=== PATIENT | female | born 1995 | race Caucasian/White ===

== ENCOUNTER → 2016-08-20 | Outpatient (CLI) | payer OTHER ==
[2016-08-20 11:03] LABS: LYMPH % 16.1 % (10-50.0)
[2016-08-20 13:51] LABS: BUN 10 mg/dL (7-18)
[2016-08-20 14:48] LABS: GFR (ESTIMATED) 106 ML/MIN (59-)
== END ==
LOC: LAB 10:53
PROVIDERS: Internal Medicine
DX: R60.0 Localized edema (principal); M79.1 Myalgia

== ENCOUNTER 2016-10-04 17:10 | Emergency (ER) | payer OTHER ==
[~2016-10-04] VITALS: Ht 162.6 cm; Wt 59.0 kg
--- NOTE | 2016-10-04 18:10 | Urgent Treatment Center Report ---
History of Present Issue Date/Time Seen by Provider 10/04/16 1800 Visit Reason Pt arrived:Walked Presenting Problem:PT C/O FLU LIKE SYMPTOMS AND SORE THROAT Location if Accident: Onset of symptoms date/time:/ or onset unknown for:MEDICAL HX UNKNOWN Have you (or family members/close friends) recently traveled outside the [place]? N If Yes, where/when: Have you had exposure to infectious disease within the past month? TB? Other? Specify: Patient states that she is having flu like symptoms. 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 State that she awoke this morning with sorethroat, and body aches Source patient ALLERGIES Coded Allergies: Sulfa (Sulfonamide Antibiotics) (11/21/15) History Medical History General CAD? No Angina: No [place]: No Hypertension? No Hyperlipidemia? No CHF? No DVT? No PE? No COPD? No Asthma? No Anemia? No GERD? No Gastric ulcers? No GI Bleed? No Hernia? No Thyroid Problems? No Hypothyroidism? No CVA? No Seizures? No Diabetes? No Renal Insuffiency? No UTI? No Stones? No BPH? No GB Disease: No Nephritic Syndrome? No Asplenia? No Hepatitis? No Sickle Cell Disease? No Arthritis? No Migraines? No Cataracts? No Glaucoma? No MRSA? No HIV? No TB? No Anxiety? No Depression? No Cancer? No More? No Immunization HX DT/Tetanus Has Never Had Surgical Hx Previous Surgery?Y T AND A Social History Smoking Hx Smoker: Never Smoker Tobacco: No Alcohol Alcohol: No Review of Systems All Other Systems Reviewed and Negative ENT throat pain. Comment Body aches, over all just feels weak and tired Physical Exam Vital Signs Vital Signs Date Time Temp Pulse Resp B/P Pulse O2 O2 Flow FiO2 Ox Delivery Rate 10/04 1749 98.2 84 16 122/64 98 General Appearance normal appearance, WD/WN, no apparent distress, mild distress Ear, Nose, Throat throat red, irritated Respiratory Status Yes: trachea midline, chest symmetrical, non tender chest. No: respiratory distress. 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 No Results/Orders Orders Procedure Date/time Status [facility] STREP SCREEN 10/05 1751 Active [facility] FLU A,B 10/05 1751 Active Departure Departure Time of Disposition 180 Disposition DC Home or Self Care(routine) Clinical Impression Primary Impression: Viral upper respiratory illness Condition STABLE Referrals Emory WICK,Abdon Paris (Family) Patient Instructions DI for Viral Upper Respiratory Infection -- Adult Additional Instructions Drink plenty of fluids Follow up with family doctor Return if needed Discharge Counseling Counseled pt/family regarding diagnosis, test results, medications/RX, home care, follow up needs at 1808
--- NOTE | 2016-10-04 18:10 | Urgent Treatment Center Report ---
History of Present Issue Date/Time Seen by Provider 10/04/16 1800 Visit Reason Pt arrived:Walked Presenting Problem:PT C/O FLU LIKE SYMPTOMS AND SORE THROAT Location if Accident: Onset of symptoms date/time:/ or onset unknown for:MEDICAL HX UNKNOWN Have you (or family members/close friends) recently traveled outside the [place]? N If Yes, where/when: Have you had exposure to infectious disease within the past month? TB? Other? Specify: Patient states that she is having flu like symptoms. 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 State that she awoke this morning with sorethroat, and body aches Source patient ALLERGIES Coded Allergies: Sulfa (Sulfonamide Antibiotics) (11/21/15) History Medical History General CAD? No Angina: No [place]: No Hypertension? No Hyperlipidemia? No CHF? No DVT? No PE? No COPD? No Asthma? No Anemia? No GERD? No Gastric ulcers? No GI Bleed? No Hernia? No Thyroid Problems? No Hypothyroidism? No CVA? No Seizures? No Diabetes? No Renal Insuffiency? No UTI? No Stones? No BPH? No GB Disease: No Nephritic Syndrome? No Asplenia? No Hepatitis? No Sickle Cell Disease? No Arthritis? No Migraines? No Cataracts? No Glaucoma? No MRSA? No HIV? No TB? No Anxiety? No Depression? No Cancer? No More? No Immunization HX DT/Tetanus Has Never Had Surgical Hx Previous Surgery?Y T AND A Social History Smoking Hx Smoker: Never Smoker Tobacco: No Alcohol Alcohol: No Review of Systems All Other Systems Reviewed and Negative ENT throat pain. Comment Body aches, over all just feels weak and tired Physical Exam Vital Signs Vital Signs Date Time Temp Pulse Resp B/P Pulse O2 O2 Flow FiO2 Ox Delivery Rate 10/04 1749 98.2 84 16 122/64 98 General Appearance normal appearance, WD/WN, no apparent distress, mild distress Ear, Nose, Throat throat red, irritated Respiratory Status Yes: trachea midline, chest symmetrical, non tender chest. No: respiratory distress. 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 No Results/Orders Orders Procedure Date/time Status [facility] STREP SCREEN 10/05 1751 Active [facility] FLU A,B 10/05 1751 Active Departure Departure Time of Disposition 180 Disposition DC Home or Self Care(routine) Clinical Impression Primary Impression: Viral upper respiratory illness Condition STABLE Referrals Emory WICK,Abdon Paris (Family) Patient Instructions DI for Viral Upper Respiratory Infection -- Adult Additional Instructions Drink plenty of fluids Follow up with family doctor Return if needed Discharge Counseling Counseled pt/family regarding diagnosis, test results, medications/RX, home care, follow up needs at 1802
[2016-10-04 18:17] VITALS: BP 122/64
[2016-10-04 18:17] LABS: UTC STREP SCREEN NOT DETECTED (NOTDETECTED)
== END 2016-10-04 18:18 | disposition home or self-care (01) ==
LOC: UTC 17:10
PROVIDERS: Nurse Practitioner
DX: J06.9 Acute upper respiratory infection, unspecified (principal)

== ENCOUNTER 2017-03-30 14:41 | Emergency (ER) | payer OTHER ==
[~2017-03-30] VITALS: Ht 162.6 cm; Wt 63.5 kg
[2017-03-30] MEDS ORDERED: ZOLOFT25 MG PO (15:03)
[2017-03-30 15:04] LABS: URINE BILIRUBIN - DIPSTICK SMALL (NEG); URINE BLOOD LARGE (NEG)
--- NOTE | 2017-03-30 15:29 | Urgent Treatment Center Report ---
See Addendum History of Present Issue Date/Time Seen by Provider 03/30/17 3147 Visit Reason Pt arrived:Walked Presenting Problem:PT STATES LOWER BACK PAIN THAT BEGAN THIS MORNING Location if Accident: Onset of symptoms date/time:03/30/17/ or onset unknown for:MEDICAL HX UNKNOWN Have you (or family members/close friends) recently traveled outside the [place]? N If Yes, where/when: Have you had exposure to infectious disease within the past month? TB? Other? Specify: c/o thoracic back pain. Mild and intermittent x days, worse last night. 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 No known injury. However pain worse last night. Difficulty sleeping or getting comfortable. Worse when laying down or really deep breaths. Denies SOA, chest pain, cough. Worse to touch thoracic region of back. "It is like my scapulas are sore". Ibuprofen helps. Last dose 0800 this morning. Denies N/T. No weakness BUEs. pt request xray today. Source patient Exam Limitations no limitations ALLERGIES Coded Allergies: Sulfa (Sulfonamide Antibiotics) (11/21/15) Home Medications Reported Medications Sertraline Hcl (Zoloft 25MG) 25 MG PO DAILY History Medical History General CAD? No Angina: No [place]: No Hypertension? No Hyperlipidemia? No CHF? No DVT? No PE? No COPD? No Asthma? No Anemia? No GERD? No Gastric ulcers? No GI Bleed? No Hernia? No Thyroid Problems? No Hypothyroidism? No CVA? No Seizures? No Diabetes? No Renal Insuffiency? No UTI? No Stones? No BPH? No GB Disease: No Nephritic Syndrome? No Asplenia? No Hepatitis? No Sickle Cell Disease? No Arthritis? No Migraines? No Cataracts? No Glaucoma? No MRSA? No HIV? No TB? No Anxiety? No Depression? No Cancer? No More? No Immunization HX DT/Tetanus Has Never Had Surgical Hx Previous Surgery?Y T AND A CATERING [place] Hx LMP Now Social History Smoking Hx Smoker: Never Smoker Tobacco: No Alcohol Alcohol: No Review of Systems All Other Systems Reviewed and Negative Constitutional denies no symptoms reported Respiratory see HPI Cardiovascular see HPI Gastrointestinal denies no symptoms reported Genitourinary denies: dysuria, frequency, hesitancy. Musculoskeletal see HPI Skin denies lesions, denies lumps, denies rash Psychiatric/Neurological see HPI, denies headache Physical Exam Vital Signs Vital Signs Date Time Temp Pulse Resp B/P Pulse O2 O2 Flow FiO2 Ox Delivery Rate 03/30 1549 20 03/30 1502 98.2 95 20 125/85 98 General Appearance normal appearance, no apparent distress Neck non-tender, supple, full range of motion Respiratory Status Yes: chest symmetrical, non tender chest, pain on inspiration (deep, scapulas). No: respiratory distress, use of accessory muscles, pain on expiration, productive cough, non productive cough. Lung Sounds anterior: lungs clear. posterior: lungs clear. bilateral: lungs clear. Cardiovascular regular rate/rhythm, no peripheral edema, no murmur Back normal inspection, no CVA tenderness, no vertebral tenderness, bowel/ bladder continent, gait normal, no UE weakness, moderate tenderness w/ palpation throughout bilateral thoracic regions Extremities non-tender, normal range of motion, normal inspection Strength 5 Upper Ext (L), 5 Upper Ext (R) Neurologic alert, no motor/sensory deficits, oriented x 3 Mental status normal mood/affect Skin normal color, warm/dry Medical Decision Making LABS/Meds/Orders Pt receiving controlled substance in ED? No Results/Orders Laboratory Tests 03/30/17 1504: Urine Color YELLOW, Urine Appearance Clear, Urine pH 6.0, Ur Specific [place] 1.025, Urine Protein TRACE H, Urine Ketones NEGATIVE, Urine Blood LARGE, Urine Nitrate NEGATIVE, Urine Bilirubin SMALL, Urine Urobilinogen 1.0, Ur Leukocyte Esterase NEGATIVE, Urine Glucose NEGATIVE Current Medication Orders Sig/Nichole Start time Last Medication Dose Route Stop Time Status Admin Ketorolac 0 .STK-MED ONE 03/30 1532 DC Tromethamine .ROUTE Ketorolac 60 MG ONCE ONE 03/30 1530 DC 03/30 Tromethamine IM 03/30 1531 1549 Orders Procedure Date/time Status THORACIC SPINE-3V SWIMMERS 03/[address] [facility] URINE DIPSTICK 03/30 1504 Complete XRAY/CT/US XRAY/CT/US XRAY T-spine XR interpretation by reviewed by me (w/ Dr. Hernandez, IDA WICK) Xray Results normal/NAD Progress [facility] Progress Notes Date 03/30/17 Time 1555 Comment Pain much improved w/ toradol. POC and xray results rvwd. Pt plans to get final xray results this evening when she returns to [employer] for work. Departure Departure Time of Disposition 1558 Disposition DC Home or Self Care(routine) Clinical Impression Primary Impression: Strain of muscle and tendon of back wall of thorax, initial encounter Condition STABLE Referrals Emory WICK,Abdon Paris (Family) Follow up IMMEDIATELY for new or worsening symptoms OR no noticeable improvement over the next 48 hours Patient Instructions DI for Back Strain or Sprain, DI for Muscle Spasm Additional Instructions * naproxen every 12 hours with meal as needed for pain/inflammation. * Remember you had a toradol shot, similiar anti-inflammatory in clinic so no naproxen until late tonight. * No additional anti-inflammatories like motrin, aleve, advil with the above amount of naproxen. You CAN still take Tylenol every 4 hours as needed if you need something more for pain. * Ice x15-20 mins 3-4 times a day for first 48 hours after the initial injury followed by moist heat x15-20 mins 3-4 times a day to affected area * Muscle relaxer every 8 hours as needed for muscle spasms but remember, it WILL cause drowsiness. You can NOT take it and drive, operate machinary or care for small children * Keep this area active. No movement leads to more stiffness. However, take it easy too and avoid heavy lifting, pushing, pulling. Discharge Counseling Counseled pt/family regarding diagnosis, test results, medications/RX, home care, follow up needs Prescriptions Current Visit Scripts Cyclobenzaprine Hcl (Flexeril) 5-10 MG PO TIDP PRN muscle spasms #9 TAB will cause drowsiness NAPROXEN (NAPROSYN 500MG TAB) 500 MG PO BID #14 TAB take with food at 1608
--- NOTE | 2017-03-30 15:29 | Urgent Treatment Center Report ---
See Addendum History of Present Issue Date/Time Seen by Provider 03/30/17 0437 Visit Reason Pt arrived:Walked Presenting Problem:PT STATES LOWER BACK PAIN THAT BEGAN THIS MORNING Location if Accident: Onset of symptoms date/time:03/30/17/ or onset unknown for:MEDICAL HX UNKNOWN Have you (or family members/close friends) recently traveled outside the [place]? N If Yes, where/when: Have you had exposure to infectious disease within the past month? TB? Other? Specify: c/o thoracic back pain. Mild and intermittent x days, worse last night. 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 No known injury. However pain worse last night. Difficulty sleeping or getting comfortable. Worse when laying down or really deep breaths. Denies SOA, chest pain, cough. Worse to touch thoracic region of back. "It is like my scapulas are sore". Ibuprofen helps. Last dose 0800 this morning. Denies N/T. No weakness BUEs. pt request xray today. Source patient Exam Limitations no limitations ALLERGIES Coded Allergies: Sulfa (Sulfonamide Antibiotics) (11/21/15) Home Medications Reported Medications Sertraline Hcl (Zoloft 25MG) 25 MG PO DAILY History Medical History General CAD? No Angina: No [place]: No Hypertension? No Hyperlipidemia? No CHF? No DVT? No PE? No COPD? No Asthma? No Anemia? No GERD? No Gastric ulcers? No GI Bleed? No Hernia? No Thyroid Problems? No Hypothyroidism? No CVA? No Seizures? No Diabetes? No Renal Insuffiency? No UTI? No Stones? No BPH? No GB Disease: No Nephritic Syndrome? No Asplenia? No Hepatitis? No Sickle Cell Disease? No Arthritis? No Migraines? No Cataracts? No Glaucoma? No MRSA? No HIV? No TB? No Anxiety? No Depression? No Cancer? No More? 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 Musculoskeletal see HPI Skin denies lesions, denies lumps, denies rash Psychiatric/Neurological see HPI, denies headache Physical Exam Vital Signs Vital Signs Date Time Temp Pulse Resp B/P Pulse O2 O2 Flow FiO2 Ox Delivery Rate 03/30 1549 20 03/30 1502 98.2 95 20 125/85 98 General Appearance normal appearance, no apparent distress Neck non-tender, supple, full range of motion Respiratory Status Yes: chest symmetrical, non tender chest, pain on inspiration (deep, scapulas). No: respiratory distress, use of accessory muscles, pain on expiration, productive cough, non productive cough. Lung Sounds anterior: lungs clear. posterior: lungs clear. bilateral: lungs clear. Cardiovascular regular rate/rhythm, no peripheral edema, no murmur Back normal inspection, no CVA tenderness, no vertebral tenderness, bowel/ bladder continent, gait normal, no UE weakness, moderate tenderness w/ palpation throughout bilateral thoracic regions Extremities non-tender, normal range of motion, normal inspection Strength 5 Upper Ext (L), 5 Upper Ext (R) Neurologic alert, no motor/sensory deficits, oriented x 3 Mental status normal mood/affect Skin normal color, warm/dry Medical Decision Making LABS/Meds/Orders Pt receiving controlled substance in ED? No Results/Orders Laboratory Tests 03/30/17 1504: Urine Color YELLOW, Urine Appearance Clear, Urine pH 6.0, Ur Specific [place] 1.025, Urine Protein TRACE H, Urine Ketones NEGATIVE, Urine Blood LARGE, Urine Nitrate NEGATIVE, Urine Bilirubin SMALL, Urine Urobilinogen 1.0, Ur Leukocyte Esterase NEGATIVE, Urine Glucose NEGATIVE Current Medication Orders Sig/Nichole Start time Last Medication Dose Route Stop Time Status Admin Ketorolac 0 .STK-MED ONE 03/30 1532 DC Tromethamine .ROUTE Ketorolac 60 MG ONCE ONE 03/30 1530 DC 03/30 Tromethamine IM 03/30 1531 1549 Orders Procedure Date/time Status THORACIC SPINE-3V SWIMMERS 03/30 1528 Active [facility] URINE DIPSTICK 03/30 1504 Complete XRAY/CT/US XRAY/CT/US XRAY T-spine XR interpretation by reviewed by me (w/ Dr. Hernandez, IDA WICK) Xray Results normal/NAD Progress [facility] Progress Notes Date 03/30/17 Time 1555 Comment Pain much improved w/ toradol. POC and xray results rvwd. Pt plans to get final xray results this evening when she returns to [employer] [facility] for work. Departure Departure Time of Disposition 1558 Disposition DC Home or Self Care(routine) Clinical Impression Primary Impression: Strain of muscle and tendon of back wall of thorax, initial encounter Condition STABLE Referrals Emory WICK,Abdon Paris (Family) Follow up IMMEDIATELY for new or worsening symptoms OR no noticeable improvement over the next 48 hours Patient Instructions DI for Back Strain or Sprain, DI for Muscle Spasm Additional Instructions * naproxen every 12 hours with meal as needed for pain/inflammation. * Remember you had a toradol shot, similiar anti-inflammatory in clinic so no naproxen until late tonight. * No additional anti-inflammatories like motrin, aleve, advil with the above amount of naproxen. You CAN still take Tylenol every 4 hours as needed if you need something more for pain. * Ice x15-20 mins 3-4 times a day for first 48 hours after the initial injury followed by moist heat x15-20 mins 3-4 times a day to affected area * Muscle relaxer every 8 hours as needed for muscle spasms but remember, it WILL cause drowsiness. You can NOT take it and drive, operate machinary or care for small children * Keep this area active. No movement leads to more stiffness. However, take it easy too and avoid heavy lifting, pushing, pulling. Discharge Counseling Counseled pt/family regarding diagnosis, test results, medications/RX, home care, follow up needs Prescriptions Current Visit Scripts Cyclobenzaprine Hcl (Flexeril) 5-10 MG PO TIDP PRN muscle spasms #9 TAB will cause drowsiness NAPROXEN (NAPROSYN 500MG TAB) 500 MG PO BID #14 TAB take with food at 1608
[2017-03-30] MEDS ORDERED: FLEXERIL10 MG PO (16:01)
[2017-03-30] MEDS ORDERED: NAPROSYN 500MG500 MG PO (16:01)
[2017-03-30 16:03] VITALS: BP 125/85
--- NOTE | 2017-03-30 16:36 | RADIOLOGY REPORT PS360 ---
EXAM: THORACIC SPINE-3V SWIMMERS HISTORY: acute scapular back pain paulo since last night, no injury COMPARISON: Chest x-ray of 06/16/2016 FINDINGS: Normal alignment. No fracture or dislocation. No lytic or blastic change. No significant degenerative change. The disc spaces are preserved. Incidental note is made of enlarged right azygous lymph node and right hilar nodes. This was present on 06/16/2016 IMPRESSION: 1. No acute finding. 2. Mediastinal and right paratracheal adenopathy
== END 2017-03-30 16:10 | disposition home or self-care (01) ==
LOC: UTC 14:41
PROVIDERS: Nurse Practitioner Family
DX: S29.012A Strain of muscle and tendon of back wall of thorax, initial encounter (principal)

== ENCOUNTER 2017-04-07 14:42 | Emergency (ER) | payer OTHER ==
[~2017-04-07] VITALS: Ht 162.6 cm; Wt 63.5 kg
[~2017-04-07 14:42] MED LIST: FLEXERIL10 MG PO; NAPROSYN 500MG500 MG PO; ZOLOFT25 MG PO
--- NOTE | 2017-04-07 15:15 | Emergency Room Report ---
See Addendum History of Present Illness Time Seen by [id number] Presenting Problem in Triage Pt arrived:Walked Presenting Problem:back pain x1 week, no releif from muscle relaxers Onset of symptoms date/time:/ or onset unknown for:MEDICAL HX UNKNOWN Treatment Prior to Arrival: FORMER HAND Provided by: Sepsis Risk Assessment: Temp: 98.7 B/P: 146/85 MAP: Pulse: 110 Resp: 18 Recent fever? N Clinical Suspician of Infection? N Mental Status: 1 - Regular (Normal Baseline) Sepsis Risk:Low Sepsis Risk Have you (or family members/close friends) recently traveled outside the [place]? N If Yes, where/when: Have you had exposure to infectious disease within the past month? N TB? Other? 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 She develops continuous mid back pain week ago. He was seen at urgent treatment center underwent x-rays and there was no abnormality. She was scheduled for physical therapy. Today she had her back manipulated. She heard a pop and developed worse pain.Muscle relaxants "Flexeril' was helping. Source patient, RN notes reviewed, family (her father), old records Exam Limitations no limitations ALLERGIES Coded Allergies: Sulfa (Sulfonamide Antibiotics) (11/21/15) Home Medications Active Scripts Cyclobenzaprine Hcl (Flexeril) 5-10 MG PO TIDP PRN muscle spasms #9 TAB Prov: 03/30/17 NAPROXEN (NAPROSYN 500MG TAB) 500 MG PO BID #14 TAB Prov: 03/30/17 Reported Medications Sertraline Hcl (Zoloft 25MG) 25 MG PO DAILY History Medical History General CAD? No Angina: No MS: No Hypertension? No Hyperlipidemia? No CHF? No DVT? No PE? No COPD? No Asthma? No Anemia? No GERD? No Gastric ulcers? No GI Bleed? No Hernia? No Thyroid Problems? No Hypothyroidism? No CVA? No Seizures? No Diabetes? No Renal Insuffiency? No End Stage Renal Disease? No UTI? No Stones? No BPH? No GB Disease: No Nephritic Syndrome? No Asplenia? No Hepatitis? No Sickle Cell Disease? No Arthritis? No Migraines? No Cataracts? No Glaucoma? No MRSA? No HIV? No TB? No Anxiety? No Depression? No Cancer? No More? 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 Respiratory no symptoms reported Cardiovascular no symptoms reported Gastrointestinal no symptoms reported Genitourinary no symptoms reported. Musculoskeletal see HPI, back pain Skin no symptoms reported Psychiatric/Neurological no symptoms reported Physical Exam Vital Signs Vital Signs Date Time Temp Pulse Resp B/P Pulse O2 O2 Flow FiO2 Ox Delivery Rate 04/07 1610 97.9 70 18 116/70 95 04/07 1543 18 04/07 1525 16 04/07 1453 98.7 110 18 146/85 98 04/07 1448 98.7 110 18 146/85 98 - WBC >12,000 or <4,000 or 10% bands? 2 or more SIRS Criteria Met? B/P:146/85 MAP: Creatinine >2.0? UA output<0.5ml/kg/hr for 2 hrs? Platelet count >100,000? Lactate >2.0mmol/1? INR >1.2 or PTT > than 60 sec? Evidence of Organ Dysfunction? Provider documented clinical suspician of infection? N Sepsis Criteria Count: 1 Sepsis Risk: Low Sepsis Risk General Appearance normal appearance, WD/WN, mild distress, due to back pain. Eye Exam - bilateral eye normal exam, bilateral eye PERRL, bilateral eye EOMI Ear, Nose, Throat hearing grossly normal, normal ENT inspection Neck normal inspection, non-tender, supple, full range of motion Respiratory Status Yes: trachea midline, chest symmetrical, non tender chest. No: respiratory distress. Lung Sounds bilateral: normal breath sounds, lungs clear. Cardiovascular normal exam, regular rate/rhythm, no peripheral edema, no gallop, no JVD, no murmur, no rub, normal peripheral pulses Peripheral Pulses Pulses normal Yes Gastrointestinal normal bowel sounds, normal exam, non tender, soft, no organomegaly Back normal inspection, vertebral tenderness from T4-6 and paraspinal area on the RIGHT. 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 Reflexes Reflexes normal Yes Skin intact, normal color, warm/dry Medical Decision Making LABS/Meds/Orders Pt receiving controlled substance in ED? Yes Results/Orders Laboratory Tests 04/07/17 1550: Urine Color YELLOW, Urine Appearance SL CLOUDY, Urine pH 6.0, Ur Specific [place] 1.025, Urine Protein NEGATIVE, Urine Ketones NEGATIVE, Urine Blood 3+ H , Urine Nitrate NEGATIVE, Urine Bilirubin NEGATIVE, Urine Urobilinogen 0.2, Ur Leukocyte Esterase 1+ H, Urine RBC 5-10, Urine WBC 5-10, Ur Squamous Epith Cells 20-50, Urine Bacteria 3+, Urine Glucose NEGATIVE Current Medication Orders Sig/Nichole Start time Last Medication Dose Route Stop Time Status Admin Morphine Sulfate 2 MG ONCE ONE 04/07 1545 DC 04/07 IV 04/07 1546 1543 Morphine Sulfate 0 .STK-MED ONE 04/07 1538 DC .ROUTE Ketorolac 60 MG ONCE ONE 04/07 1530 CAN Tromethamine IM 04/07 1531 Ketorolac 30 MG ONCE ONE 04/07 1530 DC 04/07 Tromethamine IV 04/07 1531 1525 Ketorolac 0 .STK-MED ONE 04/07 1521 DC Tromethamine .ROUTE Orders Procedure Date/time Status DIET-NOTHING BY MOUTH 04/07 D Active CULTURE, URINE 04/07 1550 Active URINALYSIS/COMPLETE 04/07 1550 Complete URINE 04/[address] SCAN REQ 04/07 1516 Complete Departure Departure Time of Disposition 1512 Disposition DC Home or Self Care(routine) Clinical Impression Primary Impression: Thoracic myofascial strain Secondary Impressions: Pneumonia, Sarcoidosis Condition STABLE Referrals Emory WICK,Abdon Paris (Family) Additional Instructions I discussed with Dr. Cat her abnormal CT scan and the need for dedicated CT chest and pulmonary consult, Dr cat will see her in the morning, dr cat recommended a Zithromax rx. and was okay with lortab rx. The patietn was advised against spinal manipulation. rest x 2 days icy hot and warm compresses follow up with Dr. Cat in AM as we discussed above. Continue flexeril. Ct chest and pulmonary consult per Dr cat Discharge Counseling Counseled pt/family regarding diagnosis, test results, medications/RX, home care, follow up needs Prescriptions Current Visit Scripts Azithromycin (Zithromax) 250 MG PO DAILY #6 TAB USE DIRECTED. HYDROCODONE 5MG/APAP 325MG (Hydrocodon-Acetaminophen 5-325) 1 TAB PO Q8HP PRN pain #6 TAB ED Critical Care Critical Care No If Critical Care minutes are documented, the time involved in the performance of seperately reportable procedures was not counted toward critical care time documented. I directly delivered medical care to this critically ill and/or injured patient. Timely evaluation and treatment was necessary to address the significant organ system(s) dysfunction present in this patient. at 1720
[2017-04-07 15:57] LABS: URINE BILIRUBIN - DIPSTICK NEGATIVE (NEG); URINE BLOOD 3+ (NEG)
[2017-04-07 16:13] LABS: URINE SQUAMOUS CELLS 20-50 #/hpf (0-5)
--- NOTE | 2017-04-07 17:05 | RADIOLOGY REPORT PS360 ---
CT THORACIC SPINE W/O CONTRAST INDICATION: Worsening thoracic spine pain SPINAL MANIPULATION WITH WORSE BACK PAIN ORDERING PHYSICIAN: Edel Campbell MD PATIENT AGE: 22 years COMPARISON: Chest CT of 06/28/2016 TECHNIQUE: Axial images are obtained without contrast. Sagittal and coronal reformatted images are reviewed as well. FINDINGS: There is normal alignment. No acute fracture or dislocation is evident. No lytic or blastic change of the thoracic spine. There is extensive mediastinal and bilateral hilar adenopathy. Some of the nodes are calcified. The adenopathy in the subcarinal region is more extensive than when compared to the previous exam with suggestion of some decreased attenuation within the adenopathy which could be related to some developing process. There is a nodular projection into the lower aspect of the right mainstem bronchus measuring 4 mm. There is some nodularity in the right upper lobe centrally and a somewhat groundglass appearance and could even be related to some underlying pneumonia. Patchy infiltrate also suspected in the right middle lobe. There is an area of cavitation in the right lower lobe medially measuring 14 mm contain a peripheral calcification. Previously this was densely calcified. There is a small right pleural effusion. A 7 mm nodule is present in the left lower lobe superior segment medially. There is a densely calcified nodule left lower lobe laterally. IMPRESSION: 1. No acute thoracic spine pathology. 2. Extensive mediastinal and hilar adenopathy with groundglass nodular density in the right upper and right middle lobe which may be related to some underlying pneumonia. There is new cavitation in the right lower lobe and a nodule in the superior segment of the left lower lobe. Sarcoidosis is a consideration. These correlate with clinical parameters. Recommend CHEST CT WITH CONTRAST for further evaluation. 3. Small right pleural effusion
[2017-04-07] MEDS ORDERED: ZITHROMAX Z-PA250 M2 PO (17:19)
[2017-04-07] MEDS ORDERED: HYDROCODONE-APA1 TA1 PO (17:19)
[2017-04-07 17:41] LABS: HEMOGLOBIN 13.3 g/dL (12.2-16.2); LYMPH # 1.6 K/mm3 (0.7-4.5); LYMPH % 10.1 % (10-50.0)
[2017-04-07 18:38] LABS: NEUTROPHILS 85 % (42-76)
--- NOTE | 2017-04-07 18:41 | RADIOLOGY REPORT PS360 ---
CT CHEST W/ CONTRAST INDICATION: Mediastinal adenopathy, chest pain, possible sarcoidosis POSSIBLE SARCOIDOSIS ORDERING PHYSICIAN: Edel Campbell MD PATIENT AGE: 22 years COMPARISON: 06/28/2016 TECHNIQUE: Axial images are obtained following the intravenous administration of 75 mL's of Isovue-370 contrast. Sagittal and coronal reformatted images are reviewed as well. FINDINGS: There is extensive mediastinal and hilar adenopathy. Much of the nodes are partially calcified within the mediastinum and allyson. The largest erika area is in the subcarinal region slightly centered toward the right. This erika mass measures up to 6.3 x 5.2 cm. At the same area this area measured 4.9 x 4 cm on the previous exam. There is a central area of slight decrease in density in this region measuring 2.1 x 1.6 cm. This is splaying the right mainstem bronchus slightly lateral. There is a nodular density within the medial aspect of the right mainstem bronchus projecting into the lumen measuring 4 to 5 mm. The erika mass is compressing the posterior aspect of the left atrium causing and word bowing of the posterior wall the left atrium. Vague groundglass nodular opacities are present in the right upper lobe posteriorly and within the right middle lobe as well as the right lung base anteriorly suggesting areas of pneumonia. Developing nodules in the right upper lobe are also considered. A pulmonary cystic area is present in the right upper lobe medially contain a peripheral calcification consistent with a small pneumatocele. Previously this region showed dense calcification. There is a small right pleural effusion. A calcified granulomas present in the left lower lobe laterally. 3 mm noncalcified nodules present in the left upper lobe anteriorly. This was not previously identified. Previously the densely calcified nodule in the left lower lobe was within a small cavity is well. The cavity is no longer apparent there is a noncalcified 7 mm nodule in the superior segment of left lower lobe medially not significantly changed Distal esophagus appears thickened and is nonspecific and could BE due to reflux. There is no evidence of aortic aneurysm or dissection. Normal heart size. IMPRESSION: Abnormal chest CT as detailed above with significant mediastinal and hilar adenopathy. The mediastinal adenopathy has progressed since the previous exam now with suggestion of some central necrosis in the subcarinal area. A small nodule above the right mainstem bronchus at 4 mm. Groundglass opacities are present on the right. All these findings may be seen with sarcoidosis. Clinical correlation is required. Small pneumatocele has developed around a granuloma superior segment of the right lower lobe. There is a small right pleural effusion.
[2017-04-07 19:22] VITALS: BP 133/91
== END 2017-04-07 19:23 | disposition home or self-care (01) ==
LOC: ER 14:42
PROVIDERS: Emergency Medicine
DX: S29.012A Strain of muscle and tendon of back wall of thorax, initial encounter (principal); X58.XXXA Exposure to other specified factors, initial encounter; Y92.9 Unspecified place or not applicable; J18.9 Pneumonia, unspecified organism; D86.9 Sarcoidosis, unspecified
CPT/HCPCS: Q9967

== ENCOUNTER 2017-06-30 10:51 | Emergency (ER) | payer OTHER ==
[~2017-06-30] VITALS: Ht 162.6 cm; Wt 63.5 kg
[~2017-06-30 10:51] MED LIST changes: +HYDROCODONE-APA1 TA1 PO; +ZITHROMAX Z-PA250 M2 PO
--- NOTE | 2017-06-30 11:40 | Urgent Treatment Center Report ---
History of Present Issue Date/Time Seen by Provider 06/30/17 1139 Visit Reason Pt arrived:Walked Presenting Problem:SORE THROAT, CONGESTION, BODY ACHES BEGAN YESTERDAY Location if Accident: Onset of symptoms date/time:/ or onset unknown for:MEDICAL HX UNKNOWN Have you (or family members/close friends) recently traveled outside the [place]? N If Yes, where/when: Have you had exposure to infectious disease within the past month? TB? Other? Specify: Patient state that she has had sore throat, congestion and body aches that started yesterday States that she has also been feeling fatigued and wanting to lay around alot States that she also noticed this morning that her lymphnodes under her jawline felt swollen so she came in to get checked to make sure she didn't have flu or strep ALLERGIES Coded Allergies: Sulfa (Sulfonamide Antibiotics) (11/21/15) Home Medications Active Scripts Azithromycin (Zithromax) 250 MG PO DAILY #6 TAB Prov: 04/07/17 HYDROCODONE 5MG/APAP 325MG (Hydrocodon-Acetaminophen 5-325) 1 TAB PO Q8HP PRN pain #6 TAB Prov: 04/07/17 Cyclobenzaprine Hcl (Flexeril) 5-10 MG PO TIDP PRN muscle spasms #9 TAB Prov: 03/30/17 NAPROXEN (NAPROSYN 500MG TAB) 500 MG PO BID #14 TAB Prov: 03/30/17 Reported Medications Sertraline Hcl (Zoloft 25MG) 25 MG PO DAILY History Medical History General CAD? No Angina: No AR: No Hypertension? No Hyperlipidemia? No CHF? No DVT? No PE? No COPD? No Asthma? No Anemia? No GERD? No Gastric ulcers? No GI Bleed? No Hernia? No Thyroid Problems? No Hypothyroidism? No CVA? No Seizures? No Diabetes? No Renal Insuffiency? No UTI? No Stones? No BPH? No GB Disease: No Nephritic Syndrome? No Asplenia? No Hepatitis? No Sickle Cell Disease? No Arthritis? No Migraines? No Cataracts? No Glaucoma? No MRSA? No HIV? No TB? No Anxiety? No Depression? No Cancer? No More? No Immunization HX DT/Tetanus Has Never Had Surgical Hx Previous Surgery?Y T AND A Social History Smoking Hx Smoker: Never Smoker Tobacco: No Alcohol Alcohol: No Review of Systems All Other Systems Reviewed and Negative Constitutional fever ENT nose congestion, throat pain. Respiratory cough Physical Exam Vital Signs Vital Signs Date Time Temp Pulse Resp B/P Pulse O2 O2 Flow FiO2 Ox Delivery Rate 06/30 1128 98.4 90 18 106/61 100 General Appearance normal appearance, WD/WN, no apparent distress Ear, Nose, Throat Throat red, irritated drainage noted, mild swelling noted in submandibular nodes, tenderness noted frontal sinus Respiratory Status Yes: trachea midline, chest symmetrical, non tender chest. No: respiratory distress. Lung Sounds bilateral: normal breath sounds, lungs clear. Cardiovascular normal exam, regular rate/rhythm Neurologic alert, normal exam, oriented x 3 Medical Decision Making LABS/Meds/Orders Pt receiving controlled substance in ED? No Results/Orders Laboratory Tests 06/30/17 1200: Monoscreen NEGATIVE 06/30/17 1142: Group A Strep Screen NOT DETECTED 06/30/17 1135: Influenza Type A Ag NOT DETECTED, Influenza Type B Ag NOT DETECTED Orders Procedure Date/time Status UTC STREP SCREEN 06/30 1142 Complete MONO SCREEN 06/30 1140 Complete UTC FLU A,B 06/30 1135 Complete CHEST(2 VIEWS-NOT PORTABLE) 06/30 1111 Active Departure Departure Time of Disposition 1235 Disposition DC Home or Self Care(routine) Clinical Impression Primary Impression: Upper respiratory infection Qualifiers: URI type: unspecified URI Qualified Code: J06.9 - Acute upper respiratory infection, unspecified Condition STABLE Referrals Emory WICK,Abdon Paris (Family) Patient Instructions Cough, DI for Nasal Congestion, Sore Throat Additional Instructions * Monitor Temp. Tylenol and/or Ibuprofen as needed. ER if fever is no less than 101 despite alternating Tylenol and Ibuprofen * Encourage fluids, water, Gatorade, powerade, pedialyte if infant/toddler/or child * Warm salt water gargles for throat irritation *Warm fluids *Sore throat lozenges *Sleep elevated *humidifier or vaporizer Lots of rest Increase fluids, water, Gatorade, powerade *Flonase 2 sprays each nostril daily but may take 2-3 days to notice improvement with it *Your throat swab was sent to lab for culture. Those results area typically sent to your primary care physician. Be sure to follow up in 2-3 days if no improvement so they can review those results and treat if necessary If you dont have primary care I recommend you get one, but in the mean time you will have to return to a walk in clinic Follow up IMMEDIATELY for new or worsening of symptoms OR no noticeable improvement over the next 48-72 hours. 911 immediately for any life threatening symptoms such as chest pain or difficulty breathing Discharge Counseling Counseled pt/family regarding diagnosis, test results, medications/RX, home care, follow up needs Prescriptions Current Visit Scripts Amoxicillin/Potassium Clav (Augmentin 875-125 Tablet) 1 EACH PO BID #14 TAB Fluticasone Propionate (Flonase 50 Mcg Nasal [place]) 2 SPRAY NA DAILY #1 BOT D-METHORPHAN HB/P-EPD HCL/BPM (Bromfed Dm Cough Syrup) 10 ML PO Q4HP PRN cough #150 SYR Prednisone (Prednisone 20MG) 20 MG PO BID #10 TAB at 1233
[2017-06-30] MEDS ORDERED: FLONASE 50 MCG16 GM (12:37)
[2017-06-30] MEDS ORDERED: BROMFED DM COU118 ML PO (12:37)
[2017-06-30] MEDS ORDERED: AUGMENTIN 875-1 EACH PO (12:37)
[2017-06-30] MEDS ORDERED: PREDNISONE 20MG20 MG PO (12:38)
[2017-06-30 12:46] VITALS: BP 106/61
--- OUTSIDE RECORDS SUMMARY | 2017-06-30 12:46 | External Medical Summary Rpt | CCD ---
Author Author , JATINDER Organization JATINDER Address Unknown Phone [email or web address] Purpose Continuity of Care Document - 04-14-2017 through 2016 Problems Code Diagnosis DOS Provider Status D86.9 SARCOIDOSIS , UNSPECIFIED J18.9 PNEUMONIA, UNSPECIFIED ORGANISM S29.019A STRAIN OF MUSCLE AND TENDON OF UNSP WALL OF THORAX, INIT T75.89XA OTHER SPECIFIED EFFECTS OF EXTERNAL CAUSES, INIT ENCNTR Results Labs Lab Lab Date Result Refere Interp Status Commen Order Detail nces retati t Range on IgE SerPl-aCnc (05-30-2017 14:20) IgE < 2 114 OR complet SerPl-a 017 kU/L LESS ed Cnc 14:20 EBV EA IgG Ser-aCnc (05-30-2017 14:20) EBV EA 2 < 9.00 complet IgG 017 U/mL ed Ser-aCn 14:20 c Bacteria Tiss Cult (04-14-2017 10:20) Bacteri [id number] complet a XXX 017 3 ed Anaerob 10:20 Strepto e+Aerob coccus e Cult mitis (organi sm) SCT STMI STREPTO COCCUS MITIS L CC XXX (ONE complet VC-aCnc 017 COLONY) ed 10:20 CC XXX LGRO complet VC-aCnc 017 LIGHT ed 10:20 GROWTH L Bacteria XXX Anaerobe Cult (04-14-2017 10:20) Bacteri [id number] complet a XXX 017 00 ed Anaerob 10:20 normal e+Aerob anaerob e Cult ic miranda (findin g) SCT MAF MIXED ANAEROB IC MIRANDA L Acid fast Stn XXX Ql (04-14-2017 10:20) ACID [id number] complet FAST 017 8 not ed STAIN 10:20 seen (qualif ier value) SCT NOAFB NO AFB SEEN L Mycobacterium XXX Ql Cult (04-14-2017 10:20) Bacteri [id number] complet a XXX 017 00 not ed Anaerob 10:20 isolate e+Aerob d e Cult (qualif ier value) SCT NM42 NO ACID FAST BACILLI ISOLATE D AT 6 WEEKS L Bacteri [id number] complet a XXX 017 00 not ed Anaerob 10:20 isolate e+Aerob d e Cult (qualif ier value) SCT NM21 NO ACID FAST BACILLI ISOLATE D AT 3 WEEKS L SPECIME TMEDIA complet N 017 TRANSPO ed CONTAIN 10:20 RT ER MEDIA L INFO: SPECIME THIOB complet N 017 THIOGYL ed CONTAIN 10:20 COLATE ER BROTH L INFO: SPECIME SUBM complet N 017 MODE OF ed CONTAIN 10:20 ER SUBMISS INFO: ION: L SPECIME RCVD complet N 017 ORDER ed CONTAIN 10:20 PROCESS ER ED. L INFO: Fungus Tiss Cult (04-14-2017 10:20) Bacteri [id number] complet a XXX 017 03 ed Anaerob 10:20 sample: e+Aerob fungus e Cult not isolate d (findin g) SCT NF42 NO FUNGAL GROWTH AT 6 WEEKS L Bacteri [id number] complet a XXX 017 03 ed Anaerob 10:20 sample: e+Aerob fungus e Cult not isolate d (findin g) SCT NF21 NO FUNGAL GROWTH AT 3 WEEKS L SPECIME RCVD complet N 017 ORDER ed CONTAIN 10:20 PROCESS ER ED. L INFO: LARRY Prep XXX (04-14-2017 10:20) LARRY [id number] complet 017 03 ed 10:20 sample: fungus not isolate d (findin g) SCT NOFEO NO FUNGAL ELEMENT S OBSERVE D L Acid fast Stn XXX Ql (04-14-2017 10:00) ACID [id number] complet FAST 017 8 not ed STAIN 10:00 seen (qualif ier value) SCT NOAFB NO AFB SEEN L Mycobacterium XXX Ql Cult (04-14-2017 10:00) Bacteri [id number] complet a XXX 017 00 not ed Anaerob 10:00 isolate e+Aerob d e Cult (qualif ier value) SCT NM42 NO ACID FAST BACILLI ISOLATE D AT 6 WEEKS L Bacteri [id number] complet a XXX 017 00 not ed Anaerob 10:00 isolate e+Aerob d e Cult (qualif ier value) SCT NM21 NO ACID FAST BACILLI ISOLATE D AT 3 WEEKS L AFB, LIQ complet DIRECT 017 LIQUID ed SPECIME 10:00 L N EXAM AFB, CLDY complet DIRECT 017 Cloudy ed SPECIME 10:00 L N EXAM AFB, COLCON complet DIRECT 017 COLOR ed SPECIME 10:00 AND N EXAM CONSIST ENCY: L AFB, RAWSP complet DIRECT 017 RAW ed SPECIME 10:00 SPECIME N EXAM N L AFB, SUBM complet DIRECT 017 MODE OF ed SPECIME 10:00 N EXAM SUBMISS ION: L AFB, RCVD complet DIRECT 017 ORDER ed SPECIME 10:00 PROCESS N EXAM ED. L Bacteria Bronch Aerobe Cult (04-14-2017 10:00) Bacteri MURF complet a XXX 017 MIXED ed Anaerob 10:00 UPPER e+Aerob RESPIRA e Cult TORY MIRANDA L CC XXX NOTAP complet VC-aCnc 017 NOT ed 10:00 APPLICA BLE L Fungus Tiss Cult (04-14-2017 10:00) Bacteri [id number] complet a XXX 017 03 ed Anaerob 10:00 sample: e+Aerob fungus e Cult not isolate d (findin g) SCT NF42 NO FUNGAL GROWTH AT 6 WEEKS L Bacteri [id number] complet a XXX 017 03 ed Anaerob 10:00 sample: e+Aerob fungus e Cult not isolate d (findin g) SCT NF21 NO FUNGAL GROWTH AT 3 WEEKS L SPECIME RCVD complet N 017 ORDER ed CONTAIN 10:00 PROCESS ER ED. L INFO: LARRY Prep XXX (04-14-2017 10:00) LARRY [id number] complet 017 03 ed 10:00 sample: fungus not isolate d (findin g) SCT NOFEO NO FUNGAL ELEMENT S OBSERVE D L
--- OUTSIDE RECORDS SUMMARY | 2017-06-30 12:46 | External Medical Summary Rpt | CCD ---
Demographics Preferred Language Japanese Marital Status Unknown Lutheran Affiliation Unknown Race Unknown Ethnic Group Unknown Author Author , JATINDER TOBIAS Address Unknown Phone Immunization No patient found.
--- OUTSIDE RECORDS SUMMARY | 2017-06-30 12:46 | External Medical Summary Rpt | CCD ---
Demographics Preferred Language Maltese Marital Status Unknown Mosque Affiliation Unknown Race Unknown Ethnic Group Unknown Author Author , JATINDER TOBIAS Address Unknown Phone Immunization No patient found.
--- OUTSIDE RECORDS SUMMARY | 2017-06-30 12:46 | External Medical Summary Rpt | CCD ---
Author Author , JATINDER Organization JATINDER Address Unknown Phone [email or web address] Purpose Continuity of Care Document - 04-14-2017 [...] c Bacteria Tiss Cult (04-14-2017 10:20) Bacteri [id number] complet a XXX 017 3 ed Anaerob 10:20 Strepto e+Aerob coccus e Cult mitis (organi sm) SCT STMI STREPTO COCCUS MITIS L CC XXX (ONE complet VC-aCnc 017 COLONY) ed 10:20 CC XXX LGRO complet VC-aCnc 017 LIGHT ed 10:20 GROWTH L Bacteria XXX Anaerobe Cult (04-14-2017 10:20) Bacteri [id number] complet a XXX 017 00 ed Anaerob 10:20 normal e+Aerob anaerob e Cult ic miranda (findin g) SCT MAF MIXED ANAEROB IC MIRANDA L Acid fast Stn XXX Ql (04-14-2017 10:20) ACID [id number] complet FAST 017 8 not ed STAIN 10:20 seen (qualif ier value) SCT NOAFB NO AFB SEEN L Mycobacterium XXX Ql Cult (04-14-2017 10:20) Bacteri [id number] complet a XXX 017 00 not ed Anaerob 10:20 isolate e+Aerob d e Cult (qualif ier value) SCT NM42 NO ACID FAST BACILLI ISOLATE D AT 6 WEEKS L Bacteri [id number] complet a XXX 017 00 not ed [...] INFO: Fungus Tiss Cult (04-14-2017 10:20) Bacteri [id number] complet a XXX 017 03 ed Anaerob 10:20 sample: e+Aerob fungus e Cult not isolate d (findin g) SCT NF42 NO FUNGAL GROWTH AT 6 WEEKS L Bacteri [id number] complet a XXX 017 03 ed Anaerob 10:20 sample: e+Aerob fungus e Cult not isolate d (findin g) SCT NF21 NO FUNGAL GROWTH AT 3 WEEKS L SPECIME RCVD complet N 017 ORDER ed CONTAIN 10:20 PROCESS ER ED. L INFO: LARRY Prep XXX (04-14-2017 10:20) LARRY [id number] complet 017 03 ed 10:20 sample: fungus not isolate d (findin g) SCT NOFEO NO FUNGAL ELEMENT S OBSERVE D L Acid fast Stn XXX Ql (04-14-2017 10:00) ACID [id number] complet FAST 017 8 not ed STAIN 10:00 seen (qualif ier value) SCT NOAFB NO AFB SEEN L Mycobacterium XXX Ql Cult (04-14-2017 10:00) Bacteri [id number] complet a XXX 017 00 not ed Anaerob 10:00 isolate e+Aerob d e Cult (qualif ier value) SCT NM42 NO ACID FAST BACILLI ISOLATE D AT 6 WEEKS L Bacteri [id number] complet a XXX 017 00 not ed [...] L Fungus Tiss Cult (04-14-2017 10:00) Bacteri [id number] complet a XXX 017 03 ed Anaerob 10:00 sample: e+Aerob fungus e Cult not isolate d (findin g) SCT NF42 NO FUNGAL GROWTH AT 6 WEEKS L Bacteri [id number] complet a XXX 017 03 ed Anaerob 10:00 sample: e+Aerob fungus e Cult not isolate d (findin g) SCT NF21 NO FUNGAL GROWTH AT 3 WEEKS L SPECIME RCVD complet N 017 ORDER ed CONTAIN 10:00 PROCESS ER ED. L INFO: LARRY Prep XXX (04-14-2017 10:00) LARRY [id number] complet 017 03 ed 10:00 sample: fungus not isolate d (findin g) SCT NOFEO NO FUNGAL ELEMENT S OBSERVE D L
--- NOTE | 2017-06-30 16:10 | RADIOLOGY REPORT PS360 ---
CHEST(2 VIEWS-NOT PORTABLE) HISTORY: Cough and congestion POSSIBLE BRONCHITIS ORDERING PHYSICIAN: GAGAN MITCHELL APRN PATIENT AGE: 22 years COMPARISON: 06/16/2016 FINDINGS: Normal heart size. The right azygos adenopathy persists but appears somewhat improved compared to the previous exam. Left lower lobe nodule once again noted unchanged. No lobar consolidation or collapse. No effusions. Mild right hilar adenopathy which may also be slightly improved. No acute bony anomalies IMPRESSION: Persistent but slightly improved right azygous and hilar adenopathy. No acute finding
== END 2017-06-30 12:47 | disposition home or self-care (01) ==
LOC: UTC 10:51
DX: J06.9 Acute upper respiratory infection, unspecified (principal)